=== PATIENT | male | born 1965 | race Caucasian/White ===

== ENCOUNTER 2022-11-24 12:18 | Inpatient (IN) | payer OTHER ==
[2022-11-24 13:23] VITALS: BMI 26.9
[2022-11-24] MEDS ORDERED: NALOXONE HCL (KLOXXADO) 8 MG SPRAY NS PRN (14:08)
[2022-11-24] MEDS ORDERED: LOPERAMIDE HCL 2 MG CAPSULE PO PRN (14:08)
[2022-11-24] MEDS ORDERED: BENZOCAINE/MENTHOL (CHLORASEPTIC ) LOZENGE MM PRN (14:08)
[2022-11-24] MEDS ORDERED: guaiFENesin 600 MG TABLET.ER (FP) PO PRN (14:08)
[2022-11-24] MEDS ORDERED: diazePAM 5 MG TABLET PO PRN (14:08)
[2022-11-24] MEDS ORDERED: ACETAMINOPHEN 325 MG TABLET (FP) PO PRN (14:08)
[2022-11-24] MEDS ORDERED: BENZONATATE 200 MG CAPSULE PO PRN (14:08)
[2022-11-24] MEDS ORDERED: ONDANSETRON *ODT* 4 MG TABLET SL PRN (14:08)
[2022-11-24] MEDS ORDERED: IBUPROFEN 400 MG TABLET (FP) PO PRN (14:08)
[2022-11-24] MEDS ORDERED: MAG HYDROX/AL HYDROX/SIMETH 30 ML UNIT-DOSE CUP PO PRN (14:08)
[2022-11-24] MEDS ORDERED: DICYCLOMINE HCL 10 MG CAPSULE PO PRN (14:08)
[2022-11-24] MEDS ORDERED: MAGNESIUM HYDROX 2400MG/30ML ORAL SUSPENSION 30 ML CUP PO PRN (14:08)
[2022-11-24] MEDS ORDERED: POLYETHYLENE GLYCOL (HEALTHYLAX) 3350 17 GM PACKET PO PRN (14:08)
[2022-11-24] MEDS ORDERED: BISMUTH SUBSALICYLATE 524 MG/30 ML PO PRN (14:08)
[2022-11-24] MEDS ORDERED: NALOXONE HCL 0.4 MG/ML VIAL IM PRN (14:08)
[2022-11-24] MEDS: diazePAM 5 MG TABLET PO SCH ×2 (17:34→22:42)
[2022-11-24] MEDS: THIAMINE HCL 100 MG TABLET (FP) PO SCH (22:41)
[2022-11-24] MEDS: MELATONIN 5 MG TABLETS PO SCH (22:41)
[2022-11-24] MEDS: METHOCARBAMOL 500 MG TABLET PO PRN (22:42)
[2022-11-25] MEDS: diazePAM 5 MG TABLET PO SCH ×4 (06:00→22:16)
[2022-11-25] MEDS: PRENATAL VITAMINS W/ FOLIC ACID TABLET (FP) PO SCH (11:36)
[2022-11-25] MEDS: METHOCARBAMOL 500 MG TABLET PO PRN (11:37)
[2022-11-25] MEDS: hydrOXYzine PAMOATE 25 MG CAPSULE (FP) PO PRN (11:37)
[2022-11-25 11:38] LABS: HEMATOCRIT 44.2 % (35.4-49); MCH 31.1 pg (25.7-33.7); MEAN CELL VOLUME 91.4 fl (80-96); MEAN PLT VOLUME 9.7 fl (7.5-11.1); PLATELET COUNT 173 10^3/uL (134-434); RBC 4.83 M/mm3 (4.00-5.60); RDW 12.5 % (11.9-15.9)
[2022-11-25 11:51] LABS: ALBUMIN 3.5 g/dl (3.4-5.0); BLOOD UREA NITROGEN 13.6 mg/dL (7-18)
[2022-11-25 11:53] LABS: CALCIUM 9.1 mg/dL (8.5-10.1); CREATININE 0.7 mg/dL (0.55-1.3)
[2022-11-25 11:55] LABS: BILIRUBIN,TOTAL 0.6 mg/dL (0.2-1); TOT PROT 6.4 g/dl (6.4-8.2)
[2022-11-25] MEDS: INSULIN SLIDING SCALE (NOVOLOG) 1 VIAL SQ SCH ×2 (17:19→22:29)
[2022-11-25] MEDS: IBUPROFEN 600 MG TABLET (FP) PO PRN (17:23)
[2022-11-25] MEDS: MELATONIN 5 MG TABLETS PO SCH (22:16)
[2022-11-25] MEDS: THIAMINE HCL 100 MG TABLET (FP) PO SCH (22:16)
[2022-11-26] MEDS: diazePAM 5 MG TABLET PO SCH ×3 (06:16→22:36)
[2022-11-26] MEDS: INSULIN SLIDING SCALE (NOVOLOG) 1 VIAL SQ SCH ×4 (06:19→22:37)
[2022-11-26] MEDS: PRENATAL VITAMINS W/ FOLIC ACID TABLET (FP) PO SCH (10:32)
[2022-11-26] MEDS: METHOCARBAMOL 500 MG TABLET PO PRN ×2 (10:33→22:36)
[2022-11-26] MEDS: hydrOXYzine PAMOATE 25 MG CAPSULE (FP) PO PRN (10:33)
[2022-11-26] MEDS: IBUPROFEN 600 MG TABLET (FP) PO PRN (10:34)
[2022-11-26] MEDS: MELATONIN 5 MG TABLETS PO SCH (22:36)
[2022-11-26] MEDS: THIAMINE HCL 100 MG TABLET (FP) PO SCH (22:36)
[2022-11-26] MEDS: INSULIN (LEVEMIR) 100 UNITS/ML UNITS SQ SCH (22:36)
[2022-11-27] MEDS: diazePAM 5 MG TABLET PO SCH ×2 (05:12→17:47)
[2022-11-27] MEDS: INSULIN SLIDING SCALE (NOVOLOG) 1 VIAL SQ SCH ×4 (06:16→22:19)
[2022-11-27] MEDS: PRENATAL VITAMINS W/ FOLIC ACID TABLET (FP) PO SCH (10:35)
[2022-11-27] MEDS: METHOCARBAMOL 500 MG TABLET PO PRN (10:35)
[2022-11-27] MEDS: hydrOXYzine PAMOATE 25 MG CAPSULE (FP) PO PRN (10:36)
[2022-11-27] MEDS: IBUPROFEN 600 MG TABLET (FP) PO PRN (17:50)
[2022-11-27] MEDS: MELATONIN 5 MG TABLETS PO SCH (22:19)
[2022-11-27] MEDS ORDERED: INSULIN (NOVOLOG) ASPART 100 UNITS/ML 10ML VIAL ONE (22:21)
[2022-11-27] MEDS: INSULIN (LEVEMIR) 100 UNITS/ML UNITS SQ SCH (22:22)
[2022-11-27] MEDS: THIAMINE HCL 100 MG TABLET (FP) PO SCH (22:23)
[2022-11-28] MEDS: IBUPROFEN 600 MG TABLET (FP) PO PRN (05:31)
[2022-11-28] MEDS ORDERED: diazePAM 5 MG TABLET PO ONE (06:00)
[2022-11-28] MEDS: INSULIN SLIDING SCALE (NOVOLOG) 1 VIAL SQ SCH (07:24)
[2022-11-28 09:32] VITALS: BP 118/70; PULSE 80; RESP 17; TEMP 96.9
== END 2022-11-28 10:10 | disposition home or self-care (01) | DRG 775 ==
LOC: YASAS 12:18 → Y6N 14:35
PROVIDERS: ADMIT Allergy & Immunology; ATTEND Surgery
PROC: HZ2ZZZZ Detoxification Services for Substance Abuse Treatment (ICD-10-PCS; principal; 2022-11-24)
DX: F10.230 Alcohol dependence with withdrawal, uncomplicated (principal); E11.9 Type 2 diabetes mellitus without complications; Z79.4 Long term (current) use of insulin
CPT/HCPCS: 36415; 80053; 82962; 83036; 85027; 86780; 87635